=== PATIENT | female | born 2000 | race Caucasian/White ===

== ENCOUNTER 2020-03-10 10:05 | Emergency (ER) | payer OTHER, SELFPAY ==
[2020-03-10 10:15] VITALS: BP 93/64; PULSE 91; RESP 16; TEMP 36.9; O2SAT 98; BMI 22.3
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
[2020-03-10 12:16] VITALS: BP 109/70; PULSE 97; RESP 18; O2SAT 99
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
== END 2020-03-10 12:18 | disposition home or self-care (01) ==
PROVIDERS: Emergency Provider Physician Assistant; PCP Nurse Practitioner
DX: Z04.1 Encounter for examination and observation following transport accident (principal); V59.9XXA Occupant (driver) (passenger) of pick-up truck or van injured in unspecified traffic accident, initial encounter
CPT/HCPCS: 12345; 70450; 71045; 72125; 99282; 99283

== ENCOUNTER → 2022-01-05 10:49 | Outpatient (BNVA) | payer OTHER, SELFPAY | PROVIDERS: PCP Nurse Practitioner; Visit Provider Emergency Medicine | DX: J02.9 Acute pharyngitis, unspecified (principal) | CPT/HCPCS: 87880 ==

== ENCOUNTER → 2024-05-23 11:29 | Outpatient (BNVA) | payer OTHER, SELFPAY | PROVIDERS: PCP Nurse Practitioner; Visit Provider Nurse Practitioner Women's Health | DX: Z12.4 Encounter for screening for malignant neoplasm of cervix (principal) | CPT/HCPCS: 88175 ==